=== PATIENT | female | born 1955 | race Caucasian/White ===

== ENCOUNTER 2022-10-25 06:09 | Inpatient (IN) ==
--- NOTE | 2022-10-06 09:48 | PAT Medication Instructions ---
Medication Instructions Date of Service October 06, 2022 Home Medications famotidine 20 mg tablet (Pepcid) 20 mg PO QAM hydrochlorothiazide 12.5 mg tablet 12.5 mg PO QAM losartan 100 mg tablet 100 mg PO QAM orphenadrine citrate 100 mg tablet,extended release 50 mg PO BID PRN Pain DO NOT take the morning of surgery famotidine 20 mg tablet (Pepcid) 20 mg PO QAM hydrochlorothiazide 12.5 mg tablet 12.5 mg PO QAM losartan 100 mg tablet 100 mg PO QAM orphenadrine citrate 100 mg tablet,extended release 50 mg PO BID PRN Pain Other Notes If you have any questions please call us at [phone] or [phone] or [phone] or [phone]
--- NOTE | 2022-10-11 11:52 | Anesthesiology Consultation ---
Date of Service October 11, 2022 Assessment & Plan (1) Encounter for pre-operative examination: - pt reports upcoming PCP clearance appointment 10/14/22. Chart Review Chart Review: Pending: Refer to Additional Notes / Consult section and Patient seen in Pre Admission Testing Teaching & Discussion Pre-Anesthesia Teaching/Discussion Notes: Instructed NPO after midnight before surgery, except medications with 15 cc of water. Medication instructions provided according to the PAT guidelines. History Surgery Operation Date: 10/25/22 12:55 Proposed Procedures p C5-C6 Anterior Cervical Discectomy and Fusion, Spinal Cord Monitoring - José Luis Tarango DO Height/Weight Height: 5 ft 7 in Weight: 70.307 kg Allergies Allergy/AdvReac Type Severity Reaction Status Date / Time ENTERIC COATING Allergy Intermediate Rash Uncoded 10/06/22 09:02 Medications Home Medications Medication Instructions Recorded Confirmed Last Taken famotidine 20 mg tablet (Pepcid) 20 mg PO QAM 10/06/22 10/06/22 Unknown hydrochlorothiazide 12.5 mg tablet 12.5 mg PO QAM 10/06/22 10/06/22 Unknown losartan 100 mg tablet 100 mg PO QAM 10/06/22 10/06/22 Unknown orphenadrine citrate 100 mg 50 mg PO BID PRN Pain 10/06/22 10/06/22 Unknown tablet,extended release Past Medical History Medical History (Updated 10/11/22 @ 12:07 by Andressa Em PA-C) GERD (gastroesophageal reflux disease) controlled, stable per pt HTN (hypertension) stable, controlled per pt Patient denies h/o stroke, seizures, heart attack, heart failure, DM, blood clots or blood transfusions. Exercise / Class Metabolic Activity II 4-5 Yardwork/Stairs/Walk up hill (denies chest discomfort or shortness of breath with 1 FOS) Past Family History Family History Other No family history of adverse response to anesthesia Past Surgical History Surgical History History of tonsillectomy and adenoidectomy CHILDHOOD Hx of bilateral cataract extraction 2020 Hx of cervical discectomy 2007 Hx of tubal ligation Past Anesthesia History No Hx of Anesthesia Complications and No Family Hx of Anesthesia Complications History of PONV No Hx of PONV and Hx of Motion Sickness Social History Smoking Status: Former smoker tobacco type: cigarettes Smoking cigarettes per day: QUIT 1988 Do You Dip or Chew Tobacco: No Hx Alcohol Use: Yes (1 GLASS DAILY) Alcohol type: wine alcohol intake frequency: 0-2 drinks per day Hx Substance Use: No substance use type: does not use Review of Systems Snoring, denies witnessed apneas. Patient denies chest pain, shortness of breath, dyspnea on exertion, fever, chills, cough, wheezing, or palpitations. Physical Exam Vital Signs Vitals BP 179/99 automatic, 175/95 after 5 minutes of rest as patient requested not waiting longer for repeat BP due to anxiety at pre-op appt/regarding surgery. She states home readings are 140s/90s. P 76 TEMP 98.6 SP02 98% on RA RESP 18 Physical Full cervical extension range of motion without pain TMD 3.5 finger breadths Mallampati Score 2 Dentition: full upper dentures; denies chipped or loose teeth, caps/crowns, implants or bridges Lungs: normal respiratory effort. Clear throughout to auscultation, no adventitious breath sounds Cardiac: regular rate and rhythm, no murmurs noted Carotid arteries: negative bruit bilat Lab Results Anesthesia Preop Results Results Anesthesia Widget: WBC 6.83 K/ul (4.8-10.8) 10/11/22 Hgb 12.7 g/dl (12.0-16.0) 10/11/22 Hct 37.2 % (37.0-47.0) 10/11/22 Plt 306 K/uL (130-400) 10/11/22 Na 136 mmol/L (136-145) 10/11/22 K 4.1 mmol/L (3.5-5.1) 10/11/22 Cl 101 mmol/L (98-107) 10/11/22 CO2 28 mmol/L (21-32) 10/11/22 BUN 18 mg/dl (6-23) 10/11/22 Creat 0.87 mg/dl (0.6-1.2) 10/11/22 Glucose Level 92 mg/dl (70-99(Fasting)) 10/11/22 PT 10.7 Seconds (9.0-12.0) 10/11/22 PTT 25.9 Seconds (21.0-31.0) 10/11/22 INR 1.0 (0.9-1.1) 10/11/22 Urine Color Yellow 10/11/22 Urine Appearance Clear (Clear) 10/11/22 Urine pH 6.0 (4.5-7.5) 10/11/22 Urine Specific [place] 1.018 (1.000-1.030) 10/11/22 Urine Protein Negative (Negative) 10/11/22 Urine Glucose (UA) Negative (Negative) 10/11/22 Urine Ketones Negative (Negative) 10/11/22 Urine Blood Negative (Negative) 10/11/22 Urine Nitrite Negative (Negative) 10/11/22 Urine Bilirubin Negative (Negative) 10/11/22 Urine Urobilinogen Negative (Negative) 10/11/22 Urine Leukocyte Esterase Negative (Negative) 10/11/22 Blood Type A Positive 10/11/22 Antibody Screen NEGATIVE 10/11/22 Testing Electrocardiogram Date: 10/11/22 NSR, rate 73 bpm Chest X-Ray Date: 10/11/22 ACDF noted. The cardiomediastinal silhouette is normal. The lungs are clear. No evidence of pleural effusion or pneumothorax. IMPRESSION: No acute chest disease. COVID-19 Risk Screen Screening Information COVID-19 Screen Date: 10/11/22 Exposure 21 Days Family/Household +COVID Last 21 Days: No Exposure 10 Days Any COVID Exposure Last 10 Days: No Symptoms Last 10 Days Experienced COVID Sx Last 10 Days: No + COVID 0-90 Days COVID + in Last 0-90 Days: No
[~2022-10-25 06:09] MED LIST: ACETAMINOPHEN 500 MG TAB PO SCH; CeleBREX 200 MG CAP PO SCH; GABAPENTIN 300 MG CAP PO SCH; LR 15ML/HR IV SCH; ceFAZolin 2000MG 2,000 MG/15 ML SYR IV SCH
[2022-10-25] MEDS ORDERED: MIDAZOLAM HCL 1 MG/ML 2ML VIAL ONE (07:18)
[2022-10-25] MEDS ORDERED: HYDROmorphone INJ 2 MG/ML SYR/VIAL ONE (07:18)
[2022-10-25] MEDS ORDERED: ATROPINE SULFATE 0.1 MG/ML 10ML SYR IV PRN (07:22)
[2022-10-25] MEDS ORDERED: ONDANSETRON INJ 2 MG/ML 2 ML VIAL IV PRN ×2 (07:22→10:52)
[2022-10-25] MEDS ORDERED: ePHEDrine sulfate 50 MG/ML AMP IV PRN (07:22)
[2022-10-25] MEDS ORDERED: PROMETHAZINE HCL 6.25 MG in SODIUM CHLORIDE 0.9% 50 ML IV PRN (07:22)
[2022-10-25] MEDS ORDERED: ceFAZolin 330 MG/ML 1 GM VIAL ONE (07:31)
--- NOTE | 2022-10-25 07:36 | History & Physical Bridge Note ---
Date of Service October 25, 2022 History & Physical Bridge Note I have examined the patient, reviewed the History & Physical and in the interval since the performance of the History & Physical I have noted the following changes of clinical significance: no changes noted
--- NOTE | 2022-10-25 07:39 | History & Physical Report ---
Date of Service October 25, 2022 Assessment & Plan (1) Herniation of cervical intervertebral disc with radiculopathy: Plan: C5-C6 anterior cervical discectomy and fusion, possible C6-C7 hardware removal History of Present Illness Chief Complaint: Neck and arm pain Primary Care Provider: ELISSA Watkins Chronic neck and arm pain Allergies Allergy/AdvReac Type Severity Reaction Status Date / Time ENTERIC COATING Allergy Intermediate Rash Uncoded 10/25/22 06:34 Home Medications Medication Instructions Recorded Confirmed Type famotidine 20 mg tablet (Pepcid) 20 mg PO QAM 10/06/22 10/25/22 History hydrochlorothiazide 12.5 mg tablet 25 mg PO QAM 10/06/22 10/25/22 History losartan 100 mg tablet 100 mg PO QAM 10/06/22 10/25/22 History orphenadrine citrate 100 mg 50 mg PO BID PRN Pain 10/06/22 10/25/22 History tablet,extended release Past Med/Surg History Medical History (Updated 10/25/22 @ 07:39 by José Luis Tarango DO) GERD (gastroesophageal reflux disease) controlled, stable per pt HTN (hypertension) stable, controlled per pt Surgical History History of tonsillectomy and adenoidectomy CHILDHOOD Hx of bilateral cataract extraction 2020 Hx of cervical discectomy 2007 Hx of tubal ligation Family History Other No family history of adverse response to anesthesia Social History Smoking Status: Former smoker Cigarettes Per Day: QUIT 1987; Second Hand Exposure: No; Do You Dip or Chew Tobacco: No; Tobacco Cessation Education Requested by Patient: No Hx Alcohol Use: Yes (1 GLASS DAILY) Alcohol type: wine Hx Substance Use: No Preferred Language: Ukrainian Communication Ability: Effective 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
[2022-10-25] MEDS ORDERED: DEXAMETHASONE SOD INJ 4 MG/ML VIAL ONE (08:08)
[2022-10-25] MEDS ORDERED: ONDANSETRON INJ 2 MG/ML 2 ML VIAL ONE (08:08)
[2022-10-25] MEDS ORDERED: PROPOFOL IV EMULSION 10 MG/ML 20 ML VIAL IV ONE (08:08)
[2022-10-25] MEDS ORDERED: ROCURONIUM BROMIDE 10 MG/ML 5 ML VIAL IV ONE (08:08)
[2022-10-25] MEDS ORDERED: LIDOCAINE 2% MPF LOCAL 5 ML VIAL ONE (08:08)
[2022-10-25] MEDS ORDERED: SUGAMMADEX SODIUM 200 MG/2 ML VIAL IV ONE (08:08)
[2022-10-25] MEDS ORDERED: PHENYLEPHRINE HCL 10 MG/ML VIAL ONE (08:09)
[2022-10-25] MEDS ORDERED: FLOSEAL HEMOSTATIC MATRIX 10ML TOP ONE (08:49)
--- NOTE | 2022-10-25 08:55 | Operative Report ---
Post Operative Report Pre & Post Diagnosis Operation Date: 10/25/22 07:45 Pre-Op Diagnosis: Cervical disc herniation with radiculopathy Post-Op Diagnosis: Same I identified the patient and participated in the time-out.: Yes Procedure Operation Date: 10/25/22 07:45 Actual Procedures #1 anterior cervical discectomy with bilateral foraminotomies C5-C6. #2 anterior cervical arthrodesis C5-C6. #3 placement of globus coalition 7 mm cage filled I factor at C5-C6. Surgeon José Luis Tarango, Speed Reading Teacher Teresa Garnica Estimated Blood Loss 10 Findings Consistent with Post-Op Diagnosis Specimens None Indications This is a 67-year-old female well-known to me the presents above-mentioned diagnosis of failed course of nonoperative care she is here for surgical invention. Description of Procedure Patient was met with identified informed consent obtained. Patient was then taken to the operative suite underwent a patient placed in spine position jacks table with head Ross head track coach. All bony prominences well-padded eyes inspected to ensure no external pressure placed upon them. This point the anterior cervical spine was prepped and draped in a sterile fashion. With the assistance of fluoroscopy identified the C5-C6 disc base and a transverse incision was placed overlying this region. Blunt dissection with the assistance of bipolar electrocautery was performed down to and exposing the anterior cervical spine at C5-C6. Self-retaining retractors placed. Then performed a complete discectomy of C5-C6 out to the uncovertebral joints bilaterally. Aurora distracting pins were utilized to assist in visualization. Removed all posterior annular fibers longitudinal ligament bilateral foraminotomies performed as well as excise of large fragment in the left neuroforamen. The endplates were then burred to subcortical bleeding bone and a 7 mm coalition cage tapped in position and screwed into place with fluoroscopic visualization. The incision was then copiously irrigated explored to ensure no damage to surrounding structures or remaining bleeding. 10 round PIPPA drain inserted. The incision was then closed with 2 Vicryl in the fashion of 4 Monocryl for fascial closure. Steri-Strips sterile dressings placed. Patient waken taken to PACU in stable condition. Please note spinal cord monitoring visualized at the procedure no changes noted. Lastly Teresa Garnica was present at the entire surgery involved the patient positioning complex portions of the surgery and final skin closure. I attest to the content of the Intraoperative Record and any orders documented therein. Any exceptions are noted below.
[2022-10-25] MEDS: fentaNYL citrate PF 100 MCG/2 ML VIAL IV PRN ×4 (09:14→09:29)
--- NOTE | 2022-10-25 09:21 | Fluoroscopy Report ---
FL cervical 2-3V CLINICAL HISTORY: ACDF C5-6/ POSSIBLE C6-7 RH COMPARISON STUDY: Cervical spine radiograph 01/01/2008. FLUOROSCOPY TIME: 9.4 seconds. EXPOSURE DOSE: 1.09 mGy FLUOROSCOPIC IMAGES: 2 FINDINGS: Fluoroscopy was provided during interval C5-C6 anterior discectomy and fusion. Previous C6- C7 anterior discectomy and fusion is noted. Endotracheal tube is partially imaged. A surgical drain i s in place. IMPRESSION: Fluoroscopy provided during C5-C6 anterior discectomy and fusion. ACT 112: Negative or not required by law. Electronically signed by: Marty Macdonald M.D. 10/25/2022 9:19 AM
[2022-10-25] MEDS: HYDROmorphone INJ 1 MG/ML SYRINGE IV PRN ×4 (09:34→09:49)
[2022-10-25] MEDS ORDERED: LORazepam 2 MG/1 ML VIAL IV PRN (10:52)
[2022-10-25] MEDS ORDERED: ALUMINUM/MAGNESIUM SUSP 30 ML UDC PO PRN (10:52)
[2022-10-25] MEDS ORDERED: LORazepam 0.5 MG TAB PO PRN (10:52)
[2022-10-25] MEDS ORDERED: RACEPINEPHRINE 2.25% NEBU SOLN 0.5 ML VIAL INH PRN (10:52)
[2022-10-25] MEDS ORDERED: HYDROmorphone INJ 1 MG/ML SYRINGE IV PRN (10:52)
[2022-10-25] MEDS ORDERED: DO NOT ADMINISTER FLU VACCINE PRN (10:52)
[2022-10-25] MEDS ORDERED: NALOXONE HCL 0.4 MG/1 ML VIAL/CARP IV PRN (10:52)
[2022-10-25] MEDS ORDERED: oxyCODONE HCL IR 5 MG TAB (IMMEDIATE RELEASE) PO PRN (10:52)
[2022-10-25] MEDS ORDERED: bisacodyL 10 MG SUPP PR PRN (10:52)
[2022-10-25] MEDS ORDERED: DO NOT ADMINISTER PNEUMOCOCCAL VACCINE PRN (10:52)
[2022-10-25] MEDS ORDERED: diphenhydrAMINE Capsule 25 MG CAP PO PRN (10:52)
[2022-10-25] MEDS ORDERED: SOD PHOSPHATE/SOD BIPHOSPHATE ENEMA 132 ML BTL PR PRN (10:52)
[2022-10-25] MEDS ORDERED: hydrOXYzine HCl 25 MG TAB PO PRN (10:52)
[2022-10-25] MEDS ORDERED: HYDROmorphone INJ 0.5 MG/0.5 ML SYR IV PRN (10:52)
[2022-10-25] MEDS ORDERED: ACETAMINOPHEN 1,000 MG/100 ML VIAL IV PRN (10:52)
[2022-10-25] MEDS ORDERED: METOCLOPRAMIDE HCL INJ 5 MG/ML 2 ML VIAL IV PRN (10:52)
[2022-10-25] MEDS ORDERED: ONDANSETRON 4 MG OD TAB PO PRN (10:52)
[2022-10-25] MEDS ORDERED: PROMETHAZINE HCL 12.5 MG in SODIUM CHLORIDE 0.9% 50 ML IV PRN (10:52)
[2022-10-25] MEDS ORDERED: dexAMETHasone 8 MG in SYRINGE 0 ML IV PRN (10:52)
[2022-10-25] MEDS ORDERED: MAGNESIUM HYDROXIDE SUSP 30 ML UDC PO PRN (10:52)
[2022-10-25] MEDS ORDERED: traMADol HCL 50 MG TABLET PO PRN (10:52)
[2022-10-25] MEDS ORDERED: FAMOTIDINE 20 MG TAB PO PRN (10:52)
--- NOTE | 2022-10-25 11:27 | Hospitalist Consultation ---
Date of Consultation October 25, 2022 Assessment & Plan (1) Herniation of cervical intervertebral disc with radiculopathy: 67 y/o female with HTN, mixed hyperlipidemia and GERD who is POD #0 C5-C6 ACDF done for cervical radiculopathy - Pain control, PT, DVT prophylaxis per primary service - Discussed importance of incentive spirometry with patient - Labs in AM - CBC, BMP. Monitor for post-op anemia but estimated blood loss 10 ml. (2) HTN (hypertension): Currently well- controlled - continue home meds. (3) GERD (gastroesophageal reflux disease): Continue H2 marcel as taken outpatient (4) Mixed hyperlipidemia: Plan Pt seen and reviewed with collaborating physician, Dr. Iqbal. Plan of care discussed and as outlined above. Thank you for this consultation. We will continue to follow this patient with you. [facility] via [facility]. Please don't hesitate to reach out with questions. Vita Moulton PA-C Supervising Physician Co-Signing Physician Notes 67 yo F w/ PMH of HTN, HLD, GERD and cervical radiculopathy was seen and examined at bedside at medical consult for s/p ACDF C5-C6 by Dr. Tarango. Pt appears comfortable, reports improvement in her L>R UE radicular symptoms. Denies any recent acute illness or new problems w/ bowel or bladder. Reports pain at operative site bearable. c/w pain mx, PT OT and DVT Px per Primary. IS. Labs in AM, watch out for post op anemia. on Exam GENERAL: Alert and oriented x3. NAD, on 2L NC O2. HEENT: No pallor, no icterus. Pupils equal, round and reactive to light. Oral mucosa moist. NECK: No JVD, no neck masses. C-collar in place, cervical dressing c/d/i. PIPPA drain w/ scant serosanguineous collection noted. HEART: S1 and S2 heard. Regular rate and rhythm. No murmur, no gallop. RESPIRATORY SYSTEM: Normal AP diameter. No accessory muscle use. No wheezing, no crackles. ABDOMEN: Soft, bowel sounds present, nontender, no distention. CENTRAL NERVOUS SYSTEM: No facial droop. Speech is clear. Obeys simple commands. Moves extremities. EXTREMITIES: No edema, no erythema seen. Distal NV status wnl. I have seen and examined the patient and have discussed the case with the provider above. I agree with the assessment and plan as stated. History of Present Illness Reason for Consultation: Post-operative Medical Management Requesting Physician: Dr. José Luis Tarango Attending Physician: José Luis Tarango DO History of Present Illness This is a 67 y/o female with a PMH of HTN, mixed hyperlipidemia, GERD and cervical radiculopathy who underwent C5-C6 anterior cervical discectomy and fusion today by Dr. Tarango and for whom we have been consulted for post- operative medical management. Pt reports a history of neck pain that may radiate into her left arm. Transient relief with injection. Associated numbness and tingling in hands at times. Currently, she is having neck pain rat ed as 10/01 - was more severe initially post-op but has improved with medications. No current numbness or tingling at present. She has a mild sore throat but denies dysphagia. No chest pain, palpitations, dyspnea, JOY, dizziness, nausea, or vomiting. Overall, feeling well post-operatively without significant complaint at present. Allergies Allergy/AdvReac Type Severity Reaction Status Date / Time ENTERIC COATING Allergy Intermediate Rash Uncoded 10/25/22 06:34 Home Medications Medication Instructions Recorded Confirmed Type famotidine 20 mg tablet (Pepcid) 20 mg PO QAM 10/06/22 10/25/22 History hydrochlorothiazide 12.5 mg tablet 25 mg PO QAM 10/06/22 10/25/22 History losartan 100 mg tablet 100 mg PO QAM 10/06/22 10/25/22 History orphenadrine citrate 100 mg 50 mg PO BID PRN Pain 10/06/22 10/25/22 History tablet,extended release oxycodone-acetaminophen 5 mg-325 1 tab PO Q8H #20 tabs 10/25/22 Rx mg tablet (Percocet) tramadol 50 mg tablet 50 mg PO Q6H PRN pain, moderate 10/25/22 Rx #30 tabs Patient History Medical History (Updated 10/25/22 @ 11:36 by Le Moulton PA-C) Allergic rhinitis GERD (gastroesophageal reflux disease) controlled, stable per pt HTN (hypertension) stable, controlled per pt Mixed hyperlipidemia Surgical History History of tonsillectomy and adenoidectomy CHILDHOOD Hx of bilateral cataract extraction 2020 Hx of cervical discectomy 2007 Hx of tubal ligation Family History Other No family history of adverse response to anesthesia Social History Smoking Status: Former smoker Cigarettes Per Day: QUIT 1987; Second Hand Exposure: No; Do You Dip or Chew Tobacco: No; Tobacco Cessation Education Requested by Patient: No Hx Alcohol Use: Yes (1 GLASS DAILY) Alcohol type: wine Hx Substance Use: No Preferred Language: Latvian Communication Ability: Effective Unit Educator Required: No Beliefs That Will Affect Care: None Current Living Situation: Spouse Other Information That Helps Us Care for You: No Feels Safe at Home: Yes Safety Concerns: Feels Safe At This Time Assistive Devices: Denture - Upper and Glasses Review of Systems Review of Systems: All systems reviewed & are unremarkable except as noted in HPI & below Constitutional: + fatigue; no fever and no chills Eyes: no diplopia Ear, Nose, Mouth, Throat: + sore throat; no dysphagia Respiratory: no cough and no dyspnea Cardiovascular: no chest pain, no palpitations, no syncope and no edema Gastrointestinal: no abdominal pain, no nausea and no vomiting Genitourinary: no dysuria and no hematuria Musculoskeletal: + neck pain Integumentary: no rash and no yellowing of the skin Neurologic: no dizziness, no headache(s) and no confusion Psychiatric: no depression and no anxiety Physical Exam Constitutional: well developed and well nourished; no acute distress Eyes: + anicteric sclerae ENMT: external ear and nose normal, oropharynx normal Neck: hard cervical collar in place. 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, sensation to light touch intact bilateral UE Skin: no jaundice Neurologic: moves all extremities; no focal motor deficits and not confused Psychiatric: A+Ox3, euthymic affect Results & Data Results & Data Vital Signs (Past 12 Hours) Vital Signs Temp Pulse Pulse Resp BP BP Pulse Ox 10/25/22 11:13 36.3 C L 65 14 137/82 97 10/25/22 11:05 10/25/22 10:42 36.5 C 65 16 145/85 H 98 10/25/22 10:30 60 18 136/78 96 10/25/22 10:20 65 14 157/79 H 98 10/25/22 10:00 61 13 158/79 H 94 10/25/22 09:50 64 12 158/82 H 95 10/25/22 10:10 36.2 C L 71 14 162/77 H 97 10/25/22 09:40 69 20 176/91 H 97 10/25/22 09:30 67 18 186/95 H 100 10/25/22 09:20 69 16 189/85 H 100 10/25/22 09:10 82 18 166/107 H 100 10/25/22 09:07 36.2 C L 88 16 164/96 H 100 10/25/22 06:36 36.9 C 61 18 149/88 H 96 O2 Del Method O2 Flow Rate 10/25/22 11:13 Nasal Cannula 2 10/25/22 11:05 Nasal Cannula 2 10/25/22 10:42 Nasal Cannula 2 10/25/22 10:30 Nasal Cannula 2 10/25/22 10:20 Nasal Cannula 2 10/25/22 10:00 Room Air 10/25/22 09:50 Room Air 10/25/22 10:10 Nasal Cannula 2 10/25/22 09:40 Room Air 10/25/22 09:30 Oxymask 6 10/25/22 09:20 Oxymask 6 10/25/22 09:10 Oxymask 6 10/25/22 09:07 Oxymask 9 10/25/22 06:36 Room Air Laboratory Results 10/25/22 Unknown SARS-CoV-2, RNA, NAAT NEGATIVE Medications Administered Acetaminophen (Acetaminophen 500 Mg Tab) 1,000 mg PO PREOP CLARKE Stop: 04/03/23 18:00 Last Admin: 10/25/22 06:59 Dose: 1,000 mg Documented By: JEFFRY Celecoxib (Celebrex 200 Mg Cap) 200 mg PO PREOP CLARKE Stop: 10/25/22 18:00 Last Admin: 10/25/22 06:58 Dose: 200 mg Documented By: JEFFRY Fentanyl Citrate (Fentanyl Citrate Pf 100 Mcg/2 Ml Vial) 50 mcg IV Q5M PRN PRN Reason: PACU Use Only-Pain Stop: 10/25/22 15:22 Last Admin: 10/25/22 09:29 Dose: 50 mcg Documented By: Admin: 10/25/22 09:24 Dose: 50 mcg Documented By: Admin: 10/25/22 09:19 Dose: 50 mcg Documented By: Admin: 10/25/22 09:14 Dose: 50 mcg Documented By: DENISE Gabapentin (Gabapentin 300 Mg Cap) 300 mg PO PREOP CLARKE Stop: 10/25/22 18:00 Last Admin: 10/25/22 06:59 Dose: Not Given Documented By: JEFFRY Hydromorphone HCl (Hydromorphone Inj 1 Mg/Ml Syringe) 0.25 mg IV Q5M PRN PRN Reason: PACU Use Only-Pain Stop: 10/25/22 15:22 Last Admin: 10/25/22 09:49 Dose: 0.25 mg Documented By: Admin: 10/25/22 09:44 Dose: 0.25 mg Documented By: Admin: 10/25/22 09:39 Dose: 0.25 mg Documented By: Admin: 10/25/22 09:34 Dose: 0.25 mg Documented By: DENISE Cefazolin Sodium (Ancef 2000mg) 2,000 mg in 15 mls @ 3.75 mls/min IV PREOP CLARKE; Protocol Stop: 10/25/22 18:00 Last Admin: 10/25/22 07:44 Dose: 3.75 mls/min Documented By: Lactated Ringer's (Lr) 1,000 mls @ 100 mls/hr IV .Q10H CLARKE Stop: 11/24/22 10:51 Last Admin: 10/25/22 11:31 Dose: 100 mls/hr Documented By: CHARLY Dexamethasone 6 mg/ Syringe 1.5 mls @ 1 mls/min IV DAILY CLARKE Stop: 10/27/22 09:02 Last Admin: 10/25/22 11:34 Dose: 1 mls/min Documented By: CHARLY Discontinued Medications Cefazolin Sodium (Cefazolin 330 Mg/Ml 1 Gm Vial) Confirm Administered Dose 990 mg .ROUTE .STK-MED ONE Stop: 10/25/22 07:32 Last Admin: 10/25/22 08:50 Dose: 990 mg Documented By: JOSE F Lactated Ringer's (Lr) 1,000 mls @ 15 mls/hr IV .Q24H CLARKE Stop: 10/26/22 05:59 Last Infusion: 10/25/22 07:44 Dose: 0 mls/hr Documented By: Admin: 10/25/22 06:56 Dose: 15 mls/hr Documented By: JEFFRY Miscellaneous ( Floseal Hemostatic Matrix 10ml) 10 ml TOP ONCE ONE Stop: 10/25/22 08:50 Last Admin: 10/25/22 08:51 Dose: 10 ml Documented By: JOSE F
[2022-10-25] MEDS: LACTATED RINGER'S 1,000 ML IV SCH ×2 (11:31→19:16)
[2022-10-25] MEDS: dexAMETHasone 6 MG in SYRINGE 0 ML IV SCH (11:34)
[2022-10-25] MEDS: hydroCHLOROthiazide 25 MG TAB PO SCH (12:17)
[2022-10-25] MEDS: LOSARTAN POTASSIUM 50 MG TAB PO SCH (12:17)
[2022-10-25] MEDS: FAMOTIDINE 20 MG TAB PO SCH (12:18)
--- NOTE | 2022-10-25 16:28 | Anesthesiology Progress Note ---
Date of Service October 25, 2022 Anesthesia Post Procedure Vital Signs Vital Signs: Temp Pulse Pulse Resp BP BP Pulse Ox 10/25/22 15:43 76 18 96 10/25/22 15:42 36.5 C 83 16 147/81 H 99 10/25/22 13:42 36.4 C L 71 16 126/71 98 10/25/22 12:41 36.3 C L 67 13 121/74 98 10/25/22 11:39 36.4 C L 68 11 L 127/77 98 10/25/22 11:28 66 16 96 10/25/22 11:13 36.3 C L 65 14 137/82 97 10/25/22 11:05 10/25/22 10:42 36.5 C 65 16 145/85 H 98 10/25/22 10:30 60 18 136/78 96 10/25/22 10:20 65 14 157/79 H 98 10/25/22 10:00 61 13 158/79 H 94 10/25/22 09:50 64 12 158/82 H 95 10/25/22 10:10 36.2 C L 71 14 162/77 H 97 10/25/22 09:40 69 20 176/91 H 97 10/25/22 09:30 67 18 186/95 H 100 10/25/22 09:20 69 16 189/85 H 100 10/25/22 09:10 82 18 166/107 H 100 10/25/22 09:07 36.2 C L 88 16 164/96 H 100 10/25/22 06:36 36.9 C 61 18 149/88 H 96 O2 Del Method O2 Flow Rate 10/25/22 15:43 Room Air 10/25/22 15:42 Nasal Cannula 2 10/25/22 13:42 Nasal Cannula 2 10/25/22 12:41 Room Air 10/25/22 11:39 Nasal Cannula 2 10/25/22 11:28 Nasal Cannula 2 10/25/22 11:13 Nasal Cannula 2 10/25/22 11:05 Nasal Cannula 2 10/25/22 10:42 Nasal Cannula 2 10/25/22 10:30 Nasal Cannula 2 10/25/22 10:20 Nasal Cannula 2 10/25/22 10:00 Room Air 10/25/22 09:50 Room Air 10/25/22 10:10 Nasal Cannula 2 10/25/22 09:40 Room Air 10/25/22 09:30 Oxymask 6 10/25/22 09:20 Oxymask 6 10/25/22 09:10 Oxymask 6 10/25/22 09:07 Oxymask 9 10/25/22 06:36 Room Air Pain Intensity Neck: Pain Intensity: 0 Transfer of Care Handoff Completed per policy Notes Mental Status: alert / awake / arousable Patient Amnestic to Procedure: Yes Nausea / Vomiting: adequately controlled Pain: adequately controlled Airway Patency, RR, SpO2: stable & adequate BP & HR: stable & adequate Hydration State: stable & adequate Anesthetic Complications: no major complications apparent
[2022-10-25] MEDS: ACETAMINOPHEN 500 MG TAB PO PRN (20:18)
[2022-10-25] MEDS ORDERED: DOCUSATE SODIUM/SENNA 50/8.6MG TAB PO SCH (21:00)
[2022-10-26] MEDS: ACETAMINOPHEN 500 MG TAB PO PRN (06:31)
[2022-10-26] MEDS: POLYETHYLENE (MIRALAX) 17 GM PACK PO SCH ×2 (06:32→12:33)
[2022-10-26] MEDS: hydroCHLOROthiazide 25 MG TAB PO SCH (08:33)
[2022-10-26] MEDS: FAMOTIDINE 20 MG TAB PO SCH (08:33)
[2022-10-26] MEDS: dexAMETHasone 6 MG in SYRINGE 0 ML IV SCH (08:33)
[2022-10-26] MEDS: LOSARTAN POTASSIUM 50 MG TAB PO SCH (08:33)
[2022-10-26 09:33] LABS: Basophils # (auto) 0.01 K/uL (0-0.2); Basophils % (auto) 0.1 %; Eosinophils # (auto) 0.01 K/uL (0-0.50); Eosinophils % (auto) 0.1 %; Hematocrit (blood only) 32.4 % (37.0-47.0); Hemoglobin 11.1 g/dl (12.0-16.0); Immature Granulocytes # (auto) 0.03 K/uL (0.01-0.20); Immature Granulocytes % (auto) 0.3 %; Lymphocytes # (auto) 1.79 K/uL (1.2-3.4); Lymphocytes % (auto) 18.1 %; Mean Corpuscular Hemoglobin 29.6 pg (25.0-34.0); Mean Corpuscular Hgb Conc 34.3 g/dL (32.0-36.0); Mean Corpuscular Volume 86.4 fL (80.0-100.0); Mean Platelet Volume 10.7 fL (9.4-12.4); Monocytes # (auto) 0.76 K/uL (0.11-0.59); Monocytes % (auto) 7.7 %; Neutrophils # (auto) 7.28 K/uL (1.40-6.50); Neutrophils % (auto) 73.7 %; Platelet Count 259 K/uL (130-400); RDW Coefficient of Variation 11.9 % (11.5-14.5); RDW Standard Deviation 37.8 fL (36.4-46.3); Red Blood Count 3.75 M/uL (4.20-5.40); White Blood Count 9.88 K/ul (4.8-10.8)
[2022-10-26 09:47] LABS: BUN Creatinine Ratio 18.9 (10-20); Calcium 8.7 mg/dl (8.6-10.3); Creatinine Clr Calc Pharmacy 73.7 ml/min; Est GFR (African American) 98.5 ml/min; Potassium 3.6 mmol/L (3.5-5.1)
[2022-10-26] MEDS ORDERED: SODIUM CHLORIDE 0.9% 500 ML IV SCH (11:15)
--- NOTE | 2022-10-26 11:44 | Orthopedic Progress Note ---
Date of Service October 26, 2022 Assessment & Plan (1) Herniation of cervical intervertebral disc with radiculopathy: Plan: At this time patient is progressing appropriately. We will discontinue her drain. Discharge will depend on clearance from medicine. Admission and Anticipated Discharge Date Admission Date: October 25, 2022 Subjective Patient is swallowing well. No hoarseness. Arm symptoms are markedly improved. Physical Exam Physical Exam: On exam she is up and ambulating. She has excellent strength testing upper extremities. Results & Data Vital Signs (Past 12 Hours) Vital Signs Temp Pulse Resp BP BP Pulse Ox O2 Del Method 10/26/22 08:30 37 C 65 16 152/75 H 95 Room Air 10/26/22 07:00 64 16 96 Room Air 10/26/22 06:10 36.5 C 61 16 164/89 H 94 Room Air 10/26/22 04:05 36.6 C 64 16 132/86 94 Room Air 10/26/22 02:29 68 19 93 Room Air 10/26/22 02:10 36.4 C L 57 L 16 135/70 95 Room Air 10/26/22 00:00 36.8 C 62 16 109/69 95 Room Air
[2022-10-26 13:43] LABS: Calcium 8.9 mg/dl (8.6-10.3); Potassium 3.6 mmol/L (3.5-5.1)
--- NOTE | 2022-10-26 13:44 | Hospitalist Progress Note ---
Date of Service October 26, 2022 Assessment & Plan (1) Herniation of cervical intervertebral disc with radiculopathy: Plan: POD#1 C5-C6 ACDF by Dr. Tarango Activity and wound care orders as per ortho Pain control with bowel regimen PT/OT Monitor H/H for acute blood loss anemia and transfuse blood products PRN EBL 10 cc, Hgb stable today at 11.1 (2) Hyponatremia: Plan: Na+ 127 (130 on preop labs on 10/11) --> 126 on afternoon repeat Likely hypovolemic hyponatremia due to recently increased dose of HCTZ Discontinue HCTZ at discharge and start amlodipine 5 mg daily Follow-up BMP in 3 days and follow-up with PCP -- these have been arranged Patient was advised to stay in the hospital for an additional night for monitoring of hyponatremia however she was extremely eager for discharge. Warning signs of hyponatremia were reviewed with the patient and she was advised to seek immediate medical attention if she develops any. (3) HTN (hypertension): Plan: BP elevated today, may be situational Continue home dose losartan, starting amlodipine in favor of HCTZ due to hyponatremia as above Patient advised to keep a log of BPs to provide to PCP Follow with PCP (4) GERD (gastroesophageal reflux disease): Plan: Continue H2 marcel DVT PROPHYLAXIS TEDs/SCDs as per spine Ortho I spent a total of 45 minutes coordinating, documenting, and providing care for this patient excluding time spent in the performance of separately billed services. This included personally reviewing all current laboratories and imaging studies, medication reconciliation, outpatient chart review, and discussion with specialists. Admission and Anticipated Discharge Date Admission Date: October 25, 2022 Supervising Physician Co-Signing Physician Notes Attending addendum: The patient was seen and examined in medical floor She is a status post C5-C6 anterior cervical discectomy and fusion She has been feeling much better and is about to go home She was noted to receive her hydrochlorothiazide this morning Her thiazide dose was increased recently by her primary care physician She denies any symptoms On examination Sitting at the edge of the bed without any acute distress Hemodynamically stable with blood pressure on the upper side Chest-clear to auscultate bilateral Heart-S1, [id number] Abdomen-benign Extremities -negative for any edema Current labs, imaging studies reviewed Noted to have a low sodium of 12 7 The repeat test came back at 126 and the patient did not want to stay any longer in the hospital She was advised not to take anymore hydrochlorothiazide She will have a blood test done in 3 days to document that sodium level has been improving She was agreed to come to the ER if there is any symptoms as she did not want to stay in the hospital Agree with assessment and plan as outlined above by Charlene Brar - Subjective Follow-up for medical management, s/p ACDF. Patient seen and examined. Reports pain is well controlled. Noted to have hyponatremia this AM. Patient reports PCP increased HCTZ last week. Denies shortness of breath and difficulty swallowing. No chest pain. No numbness or tingling to the upper extremities. Denies abdominal pain, nausea. Physical Exam Constitutional: WD/WN, vitals as above no acute distress Neck: S/p neck surgery, C-spine collar in place, anterior surgical dressing with some staining noted Respiratory: normal respiratory effort, lungs clear to auscultation Cardiovascular: Rate/Rhythm: regular rate and regular rhythm Vessels: normal peripheral pulses Extremities: no edema Gastrointestinal (Abdomen): Percussion/Palpation: abdomen soft; abdomen nontender Musculoskeletal: Strength strong and equal BLUE Skin: no rashes, warm and dry Neurologic: no focal motor deficits Psychiatric: A+Ox3, euthymic affect Results & Data Results & Data Vital Signs (Past 12 Hours) Vital Signs Temp Pulse Resp BP BP Pulse Ox O2 Del Method 10/26/22 12:28 36.9 C 65 16 172/88 H 96 Room Air 10/26/22 08:30 37 C 65 16 152/75 H 95 Room Air 10/26/22 07:00 64 16 96 Room Air 10/26/22 06:10 36.5 C 61 16 164/89 H 94 Room Air 10/26/22 04:05 36.6 C 64 16 132/86 94 Room Air 10/26/22 02:29 68 19 93 Room Air 10/26/22 02:10 36.4 C L 57 L 16 135/70 95 Room Air Laboratory Results Short CBC 10/26/22 Range/Units 08:30 WBC 9.88 (4.8-10.8) K/ul Hgb 11.1 L (12.0-16.0) g/dl Hct 32.4 L (37.0-47.0) % Plt Count 259 (130-400) K/uL BMP 10/26/22 08:30 Sodium 127 L Potassium 3.6 Chloride 93 L Carbon Dioxide 29 BUN 14 Creatinine 0.74 Glucose 108 H Calcium 8.7
[2022-10-26 13:49] LABS: BUN Creatinine Ratio 17.7 (10-20); Est GFR (Non-African American) 78.6 ml/min
[2022-10-26] MEDS ORDERED: amLODIPine BESYLATE 5 MG TAB PO ONE (14:15)
--- NOTE | 2022-10-28 08:51 | Discharge Summary ---
Date of Service October 28, 2022 Admission HPI Per Admitting Provider Chronic neck and arm pain She failed nonoperative treatment prior to surgical decision making. Admission Exam (Per Admitting) Constitutional WD/WN, vitals as above + thin Eyes normal visual maharaj by confrontation ENMT external ear and nose normal, oropharynx normal Neck normal visual inspection Respiratory normal respiratory effort Cardiovascular Extremities: normal capillary refill Gastrointestinal (Abdomen) Inspection/Auscultation: abdomen normal to inspection Musculoskeletal Spine: + pain with cervical ROM Extremities: extremities normal to inspection and strength 5/5 throughout Skin no rashes, warm and dry Neurologic normal touch/pain/proprioception and moves all extremities Psychiatric A+Ox3, euthymic affect Eye Contact: good eye contact Discharge Data Consultations 10/25/22 10:52 Consult Hospitalist Routine Procedures Performed Operation Date: 10/25/22 07:45 Actual Procedures p C5-C6 Anterior Cervical Discectomy and Fusion, Spinal Cord Monitoring(Not Applicable) - José Luis Tarango DO Hospital Course (1) Herniation of cervical intervertebral disc with radiculopathy: Patient was discharged home on POD #1 s/p ACDF C5-6. She had an uncomplicated hospital course post operatively. Pain was controlled. She was up and ambulatory and using the restroom without issue. Discharge Instructions ACTIVITY RECOMMENDATIONS: SELF CARE INSTRUCTIONS AFTER CERVICAL FUSIONS 1. No smoking. Smoking drastically decreases the chance of a solid fusion. 2. No bending, lifting more than 5 pounds, or twisting (roll like a log when turning in bed). 3. You may shower 3 days after surgery. Thoroughly dry wound. Do not soak in the tub. 4. Cervical collar: Must be worn at all times including sleeping. You may remove the brace only to bath, eat and if you are sitting in a recliner. 5. Please walk as much as you can for exercise. Gradually increase the distance that you walk as your endurance increases. SPECIAL CARE INSTRUCTIONS: VERY IMPORTANT TO READ AND REVIEW A. Do not take any anti-inflammatory medications (i.e. Indocin, Advil, Aspirin, Naprosyn, Aleve, Motrin, etc.) as these may inhibit the chance of a solid fusion. Tylenol is okay to take. B. Your surgical incision has been closed with a cosmetic suture under the skin that will dissolve in about 6 weeks. In 14 days, you can use a pair of clean scissors and cut the suture that is left outside of the skin at the ends of your incision. C. Complications are uncommon, but please contact us if you have any signs or symptoms of: 1. wound infection (fever higher than 102.5 degrees F, redness, separation of wound, drainage, or increasing pain from the incision) 2. blood clots in legs (pain, swelling, redness and warmth in legs) 3. urinary tract infection (fever higher than 102.5 degrees, burning upon urination or increased frequency of urination) 4. nerve problems (inability to walk on your toes or heels, numbness, loss of bowel or bladder control) 5. any other symptoms that concern you. D. Please call the office at if you have any concerns or questions about your operation or recovery. MANAGING PAIN AFTER SPINAL SURGERY 1. Narcotic medication is intended for short-term use and will be provided for surgical pain. Surgical pain usually lasts for a period of 4-6 weeks. Narcotic medication includes Percocet, Vicodin, Darvocet, Tylenol #3 or Lortab. 2. Longer-term pain is more appropriately treated with non-narcotic medication such as Tylenol ES. 3. Muscle spasm is not appropriately treated with narcotics. Muscle relaxers such as Soma, Flexeril or Skelaxin can be used along with Tylenol ES. 4. Remember that we all live with some "aches and pains". This is not unusual or uncommon after an injury or as we get older. 5. We will provide appropriate medication within the normal guidelines of their prescribed use. We will also be very cautious and aware of potential abuse and extended duration of patients' medication needs. 6. Please allow 2-3 days to process refills. Prescriptions will not be mailed but must be picked up at the office. FOLLOW UP VISIT: Keep your scheduled follow-up appointment. Any questions, please call the office at .
== END 2022-10-26 15:17 | disposition home or self-care (01) | DRG 472 ==
LOC: ASU 06:09 → 3E 08:58